=== PATIENT | female | born 2000 ===

== ENCOUNTER 2020-06-16 18:08 | Emergency (ER) | payer OTHER ==
[~2020-06-16] VITALS: Ht 157.5 cm; Wt 90.9 kg
[2020-06-16 18:22] VITALS: BP 109/62; PULSE 85; TEMP 98.2
[2020-06-16] MEDS ORDERED: PRILOSEC 20MG20 MG PO (18:41)
== END 2020-06-16 18:56 | disposition home or self-care (01) ==
LOC: COL.ER 18:08
DX: T23.202A Burn of second degree of left hand, unspecified site, initial encounter (principal); T31.0 Burns involving less than 10% of body surface; K21.9 Gastro-esophageal reflux disease without esophagitis; X10.2XXA Contact with fats and cooking oils, initial encounter; Y93.G3 Activity, cooking and baking; Y92.009 Unspecified place in unspecified non-institutional (private) residence as the place of occurrence of the external cause

== ENCOUNTER 2020-06-29 22:18 | Emergency (ER) | payer OTHER ==
[~2020-06-29] VITALS: Ht 157.5 cm; Wt 90.9 kg
[~2020-06-29 22:18] MED LIST: PRILOSEC 20MG20 MG PO
[2020-06-29] MEDS ORDERED: VALTREX1 GM PO (23:21)
[2020-06-29 23:32] VITALS: BP 137/92; PULSE 93; TEMP 98.2
== END 2020-06-29 23:32 | disposition home or self-care (01) ==
LOC: COL.ER 22:18
DX: B02.9 Zoster without complications (principal)

== ENCOUNTER 2020-07-18 22:56 | Emergency (ER) | payer OTHER ==
[~2020-07-18] VITALS: Ht 157.5 cm; Wt 90.9 kg
[~2020-07-18 22:56] MED LIST changes: +VALTREX1 GM PO
[2020-07-18 23:19] VITALS: BP 140/59; TEMP 98.6
[2020-07-19 01:05] LABS: BASO % 0.2 % (0.0-2.0); EOS # 0.1 (0.0-0.7); EOS % 1.4 % (0-4.0); GRAN # 2.8 (1.4-6.5); GRAN % 44.9 % (42.2-75.2); HEMATOCRIT 40.1 % (35.0-45.0); HEMOGLOBIN 13.7 g/dl (12.0-15.0); LYMPH # 2.9 (1.2-3.4); MEAN CELL VOLUME 81 fl (80.0-95.0); MEAN CORPUSCULAR HEMOGLOBIN 28 pg (26.0-32.0); MEAN CORPUSCULAR HGB CONC 34 g/dl (33.0-37.0); MEAN PLATELET VOLUME 10.2 fl (7.4-10.4); MONO # 0.5 (0.1-0.6); MONO % 7.3 % (1.7-9.3); PLATELET COUNT 295 K/mm3 (130-400); RED BLOOD COUNT 4.98 M/mm3 (4.10-5.30); REDCELL DISTRIBUTION WIDTH-CV 13.9 % (11.5-14.5)
[2020-07-19 01:22] LABS: COLLECTION METHOD CLEAN CATCH
[2020-07-19 01:28] LABS: MUCOUS Present /lpf; PH 5 (5-8); URINE APPEARANCE Hazy; URINE BACTERIA Rare /hpf; URINE BILIRUBIN Negative (NEGATIVE); URINE BLOOD Negative (NEGATIVE); URINE COLOR Yellow; URINE GLUCOSE Negative (NEGATIVE); URINE KETONE Negative (NEGATIVE); URINE LEUKOCYTE ESTERASE Trace (NEGATIVE); URINE NITRATE Negative (NEGATIVE); URINE PROTEIN(semi-quant) 1+ (NEGATIVE); URINE UROBILINOGEN Negative (NEGATIVE)
[2020-07-19 01:28] LABS: ALANINE AMINOTRANSFERASE 17 U/L (4-34); ALBUMIN 4.3 gm/dL (3.5-5.0); ALKALINE PHOSPHATASE 85 U/L (50-136); ANION GAP 8 mmol/L (7-16); AST,SGOT 24 U/L (15-37); BILIRUBIN,TOTAL 0.4 mg/dL (0.0-1.0); BLOOD UREA NITROGEN 9 mg/dL (7-17); C-REACTIVE PROTEIN 4.6 mg/dL (0.0-0.9); CARBON DIOXIDE 23 mmol/L (22-30); CHLORIDE 107 mmol/L (98-107); GLUCOSE 97 mg/dL (74-106); LIPASE 108 U/L (23-300); POTASSIUM 3.9 mmol/L (3.4-5.0); SODIUM 138 mmol/L (137-145)
[2020-07-19 01:38] LABS: TROPONIN-I < 0.012 ng/mL (0.000-0.035)
[2020-07-19] MEDS ORDERED: PROTONIX 40MG T40 MG PO (02:07)
[2020-07-19] MEDS ORDERED: NEURONTIN300 MG/CAP PO (02:07)
[2020-07-19 02:20] VITALS: PULSE 78
== END 2020-07-19 02:20 | disposition home or self-care (01) ==
LOC: COL.ER 22:56
PROVIDERS: Emergency Medicine
DX: U07.1 COVID-19 (principal); B02.29 Other postherpetic nervous system involvement; Z32.02 Encounter for pregnancy test, result negative

== ENCOUNTER 2020-12-09 09:33 | Emergency (ER) | payer OTHER ==
[~2020-12-09] VITALS: Ht 157.5 cm; Wt 86.4 kg
[~2020-12-09 09:33] MED LIST changes: +NEURONTIN300 MG/CAP PO; +PROTONIX 40MG T40 MG PO
[2020-12-09 09:42] VITALS: BP 112/76; TEMP 96.8
[2020-12-09] MEDS ORDERED: PREDNISONE20 MG PO (10:15)
[2020-12-09 10:23] VITALS: PULSE 71
== END 2020-12-09 10:24 | disposition home or self-care (01) ==
LOC: COL.ER 09:33
DX: J40 Bronchitis, not specified as acute or chronic (principal); J04.0 Acute laryngitis; K21.9 Gastro-esophageal reflux disease without esophagitis

== ENCOUNTER 2020-12-11 13:10 | Emergency (ER) | payer OTHER ==
[~2020-12-11] VITALS: Ht 157.5 cm; Wt 86.4 kg
[~2020-12-11 13:10] MED LIST changes: +PREDNISONE20 MG PO
[2020-12-11 13:17] VITALS: BP 135/89; TEMP 97.7
[2020-12-11 14:38] LABS: COLLECTION METHOD CLEAN CATCH
[2020-12-11 14:51] LABS: MUCOUS Present /lpf; PH 5 (5-8); SQUAMOUS EPITHELIAL 20-50 /hpf; URINE APPEARANCE Cloudy; URINE BACTERIA None Seen /hpf; URINE BILIRUBIN Negative (NEGATIVE); URINE BLOOD 1+ (NEGATIVE); URINE COLOR Amber; URINE GLUCOSE Negative (NEGATIVE); URINE KETONE Negative (NEGATIVE); URINE LEUKOCYTE ESTERASE 3+ (NEGATIVE); URINE NITRATE Negative (NEGATIVE); URINE PROTEIN(semi-quant) 1+ (NEGATIVE)
[2020-12-11 15:17] VITALS: PULSE 65
== END 2020-12-11 15:16 | disposition home or self-care (01) ==
LOC: COL.ER 13:10
PROVIDERS: Nurse Practitioner
DX: J20.9 Acute bronchitis, unspecified (principal); R10.9 Unspecified abdominal pain; R19.7 Diarrhea, unspecified; R11.2 Nausea with vomiting, unspecified; T38.0X5A Adverse effect of glucocorticoids and synthetic analogues, initial encounter; Z79.52 Long term (current) use of systemic steroids